=== PATIENT | male | born 1980 | race Caucasian/White ===

== ENCOUNTER 2018-01-01 05:27 | Day surgery (SDC) | payer OTHER, MEDICAID ==
[~2018-01-01] VITALS: Ht 170.2 cm; Wt 84.5 kg
[~2018-01-01 05:27] MED LIST: ACET-784 PO; CLON1 PO; DIPH25 PO; DIVA500T52 PO; GUAIF10 PO; LEVO75 PO; LORA10TA7 PO; LORA1TAB3 PO; METF-960 PO; MULT1TAB70 PO; PARO20TA24 PO; RISP1 PO; RISP4 PO; ROSU20 PO
[2018-01-01] MEDS ORDERED: RINGERS SOLUTION,LACTATED 1,000 ML IV ONE ×2 (05:32→07:00)
[2018-01-01 06:34] LABS: GLUCOMETER DEV NAME(LOC) SDS 5; GLUCOSE,POINT OF CARE 86 MG/DL (70-110)
[2018-01-01] MEDS ORDERED: SODIUM CHLORIDE 0.9% 1,000 ML IV ONE (08:15)
[2018-01-01] MEDS ORDERED: OXYMETAZOLINE HCL 0.05% 15 ML NASAL SPRAY NASAL ONE (09:47)
[2018-01-01] MEDS ORDERED: ACETAMINOPHEN 1000 MG/ISO-OSM 100 ML IV ONE (11:40)
[2018-01-01] MEDS ORDERED: DEXAMETHASONE SOD PHOS 4 MG/ML VIAL IVP ONE (12:00)
[2018-01-01] MEDS ORDERED: MIDAZOLAM HCL 2 MG/2 ML VIAL IVP ONE (12:00)
[2018-01-01] MEDS ORDERED: KETOROLAC TROMETHAMINE 60 MG/2 ML VIAL IM ONE (12:00)
[2018-01-01] MEDS ORDERED: SUCCINYLCHOLINE CHLORIDE 20 MG/ML 10 ML VIAL IVP ONE (12:00)
[2018-01-01] MEDS ORDERED: PROPOFOL 1% 20 ML VIAL IVP ONE (12:00)
[2018-01-01] MEDS ORDERED: AMPICILLIN SODIUM 1 GM/VIAL ONE (12:00)
[2018-01-01] MEDS ORDERED: ONDANSETRON HCL 4 MG/2 ML VIAL IVP ONE (12:00)
[2018-01-01] MEDS ORDERED: LIDOCAINE/PF 2% 5 ML VIAL INJ ONE (12:00)
== END 2018-01-01 13:40 | disposition home or self-care (01) ==
LOC: SURGERY 05:27
PROVIDERS: ATTEND Dentist General Practice
DX: K05.30 Chronic periodontitis, unspecified (principal); E03.9 Hypothyroidism, unspecified; E11.9 Type 2 diabetes mellitus without complications; E78.5 Hyperlipidemia, unspecified; F41.8 Other specified anxiety disorders; F84.0 Autistic disorder; F70 Mild intellectual disabilities; F63.81 Intermittent explosive disorder; E78.00 Pure hypercholesterolemia, unspecified; Z91.018 Allergy to other foods; Z91.013 Allergy to seafood; Z79.891 Long term (current) use of opiate analgesic; Z79.84 Long term (current) use of oral hypoglycemic drugs; Z88.8 Allergy status to other drugs, medicaments and biological substances; Z79.899 Other long term (current) drug therapy
CPT/HCPCS: 41899; 82962; J0131; J0290; J0330; J1100; J1885; J2250; J2405; J2704; J3490; J7030; J7120

== ENCOUNTER 2019-05-27 05:53 | Day surgery (SDC) | payer OTHER, MEDICAID ==
[~2019-05-27] VITALS: Ht 167.6 cm; Wt 81.4 kg
[~2019-05-27 05:53] MED LIST changes: -CLON1 PO; +CLON1TAB13 PO; +LORA-1000 PO; -LORA1TAB3 PO; +MULT-12 PO; +RINGERS SOLUTION,LACTATED 1,000 ML IV ONE; -ROSU20 PO; +ROSU20TA23 PO
[2019-05-27] MEDS ORDERED: DEXAMETHASONE SOD PHOS 4 MG/ML VIAL IVP ONE (05:54)
[2019-05-27] MEDS ORDERED: ONDANSETRON HCL 4 MG/2 ML VIAL IVP ONE (05:54)
[2019-05-27] MEDS ORDERED: PROPOFOL 1% 20 ML VIAL IVP ONE (05:54)
[2019-05-27] MEDS ORDERED: 0.9% SODIUM CHLORIDE 10 ML VIAL IVP ONE (05:54)
[2019-05-27] MEDS ORDERED: LIDOCAINE 1% 10 ML VIAL IM ONE (05:54)
[2019-05-27] MEDS ORDERED: FentaNYL CITRATE-PF 100 MCG/2 ML VIAL IVP ONE (05:54)
[2019-05-27] MEDS ORDERED: SUCCINYLCHOLINE CHLORIDE 20 MG/ML 10 ML VIAL IVP ONE (05:54)
[2019-05-27 06:47] LABS: GLUCOMETER DEV NAME(LOC) SDS.; GLUCOSE,POINT OF CARE 86 MG/DL (70-110)
[2019-05-27] MEDS ORDERED: RINGERS SOLUTION,LACTATED 1,000 ML IV ONE (07:00)
[2019-05-27] MEDS ORDERED: AMPICILLIN SODIUM 1 GM/VIAL ONE (07:14)
[2019-05-27] MEDS ORDERED: SODIUM CHLORIDE 0.9% 100 ML ONE (07:15)
== END 2019-05-27 12:00 | disposition short-term general hospital (02) ==
LOC: SURGERY 05:53
PROVIDERS: ATTEND Dentist General Practice
DX: K02.9 Dental caries, unspecified (principal); K05.30 Chronic periodontitis, unspecified; K03.6 Deposits [accretions] on teeth; E03.9 Hypothyroidism, unspecified; E11.9 Type 2 diabetes mellitus without complications; E78.5 Hyperlipidemia, unspecified; F84.0 Autistic disorder; F41.9 Anxiety disorder, unspecified; Z88.8 Allergy status to other drugs, medicaments and biological substances; Z91.013 Allergy to seafood; Z91.018 Allergy to other foods; Z79.899 Other long term (current) drug therapy
CPT/HCPCS: 41899; 82962; J0290; J0330; J1100; J2405; J2704; J3010; J3490; J7050; J7120